=== PATIENT | male | born 1940 | race Caucasian/White ===

== ENCOUNTER 2019-12-02 07:33 | Outpatient (CLI) | payer MEDICARE, SELFPAY ==
[2019-12-02 08:11] LABS: Basophils Absolute Auto 0.1 K/mm3 (0.0-0.1); Basophils Percent Auto 0.9 % (0.2-1.2); Eosinophils Absolute Auto 0.3 K/mm3 (0-0.3); Eosinophils Percent Auto 5.7 % (0-4.4); Hematocrit 45.9 % (42.0-52.0); Hemoglobin 14.6 g/dL (14.0-18.0); Immature Granulocyte Absolute 0.02 K/mm3 (0.00-0.031); Immature Granulocyte Percent A 0.3 % (0-0.5); Lymphocytes Absolute Auto 1.53 K/mm3 (0.9-3.2); Lymphocytes Percent Auto 26.4 % (18.3-44.2); Mean Corpuscular HGB Conc 31.8 g/dl (32-36); Mean Corpuscular Hemoglobin 27.8 pg (26-34); Mean Corpuscular Volume 87.3 fl (80-100); Mean Platelet Volume 10.1 fl (7.4-10.4); Monocytes Absolute Auto 0.6 K/mm3 (0.1-0.6); Monocytes Percent Auto 10.2 % (2.6-8.5); Neutrophils Absolute Auto 3.3 K/mm3 (1.3-6.7); Neutrophils Percent Auto 56.5 % (45.5-73.1); Platelet Count Result 216 k/mm3 (150-375); Red Blood Count 5.26 M/mm3 (4.6-6.20); Red Cell Distribution Width 13.7 % (11.5-14.5); White Blood Count 5.8 K/mm3 (4.5-10.0)
[2019-12-02 08:23] LABS: Blood Urea Nitrogen 19 mg/dL (9-20); Calcium 8.7 mg/dL (8.4-10.2); Carbon Dioxide 29 mmol/L (22-30); Chloride 102 mmol/L (98-107); Cholesterol 169 mg/dL (0-200); Estimated Glomerular Filt Rate > 60; Glucose 112 mg/dL (75-110); HDL Direct 59 mg/dL; Sodium 136 mmol/L (137-145); Triglycerides 80 mg/dL (<150)
[2019-12-02 08:34] LABS: LDL Cholesterol Direct 76 mg/dL
[2019-12-02 08:40] LABS: Hemoglobin A1C 6.3 % (<5.7)
[2019-12-02 08:53] LABS: Prostate Specific Antigen 0.4 ng/mL (< OR = 4.0)
== END 2019-12-02 07:34 | disposition home or self-care (01) ==
PROVIDERS: PCP Internal Medicine; Visit Provider Internal Medicine
DX: I10 Essential (primary) hypertension (principal); I25.10 Atherosclerotic heart disease of native coronary artery without angina pectoris; I48.91 Unspecified atrial fibrillation; I48.92 Unspecified atrial flutter; Z85.46 Personal history of malignant neoplasm of prostate; Z79.899 Other long term (current) drug therapy
CPT/HCPCS: 36415; 80048; 80061; 83036; 84153; 84443; 85025

== ENCOUNTER 2020-07-23 07:51 | Outpatient (CLI) | payer MEDICARE, SELFPAY ==
[2020-07-23 08:30] LABS: Basophils Absolute Auto 0.1 K/mm3 (0.0-0.1); Eosinophils Absolute Auto 0.4 K/mm3 (0-0.3); Eosinophils Percent Auto 5.7 % (0-4.4); Hematocrit 46.3 % (42.0-52.0); Hemoglobin 14.8 g/dL (14.0-18.0); Immature Granulocyte Absolute 0.01 K/mm3 (0.00-0.031); Immature Granulocyte Percent A 0.2 % (0-0.5); Lymphocytes Absolute Auto 1.73 K/mm3 (0.9-3.2); Lymphocytes Percent Auto 27.5 % (18.3-44.2); Mean Corpuscular Hemoglobin 27.9 pg (26-34); Mean Corpuscular Volume 87.2 fl (80-100); Mean Platelet Volume 9.9 fl (7.4-10.4); Monocytes Absolute Auto 0.7 K/mm3 (0.1-0.6); Monocytes Percent Auto 10.6 % (2.6-8.5); Neutrophils Absolute Auto 3.5 K/mm3 (1.3-6.7); Platelet Count Result 226 k/mm3 (150-375); Red Blood Count 5.31 M/mm3 (4.6-6.20); Red Cell Distribution Width 13.4 % (11.5-14.5); White Blood Count 6.3 K/mm3 (4.5-10.0)
[2020-07-23 08:35] LABS: Add Urine Microscopic? YES; Appearance Urine Clear (Clear); Bilirubin Urine Negative (Negative); Blood Urine Negative (Negative); Color Urine Yellow (Yellow); Glucose Urine UA Negative (Negative); Ketones Urine Negative (Negative); Leukocyte Esterase Ur Negative LEU/UL (NEGATIVE); Mucus Urine Rare /lpf; Nitrate Urine Negative (Negative); Protein Urine Negative (Negative); RBC Urine 0-2 /hpf (0-2); Specific Grav Ur 1.015 (1.001-1.035); Urobilinogen Urine Negative mg/dL (<2.0); WBC Urine 0-3 /hpf (0-3)
[2020-07-23 08:42] LABS: Anion Gap 3 mmol/L (8-16); Blood Urea Nitrogen 20 mg/dL (9-20); Calcium 8.7 mg/dL (8.4-10.2); Carbon Dioxide 33 mmol/L (22-30); Chloride 104 mmol/L (98-107); Cholesterol 142 mg/dL (0-200); Estimated Glomerular Filt Rate > 60; Glucose 117 mg/dL (75-110); HDL Direct 59 mg/dL; Potassium 4.2 mmol/L (3.4-5.0); Sodium 140 mmol/L (137-145); Triglycerides 65 mg/dL (<150)
[2020-07-23 08:53] LABS: LDL Cholesterol Direct 59 mg/dL
[2020-07-23 09:47] LABS: Vitamin D 25 Hydroxy 42.7 ng/mL
[2020-07-28 23:34] LABS: Homocysteine 7.9 umol/L (<11.4)
== END 2020-07-23 07:52 | disposition home or self-care (01) ==
PROVIDERS: PCP Internal Medicine; Visit Provider Internal Medicine
DX: E78.2 Mixed hyperlipidemia (principal); R73.03 Prediabetes; Z79.899 Other long term (current) drug therapy; E55.9 Vitamin D deficiency, unspecified
CPT/HCPCS: 36415; 80048; 80061; 81001; 82306; 83036; 83090; 85025

== ENCOUNTER 2021-01-03 06:37 | Outpatient (CLI) | payer MEDICARE, SELFPAY ==
[2021-01-03 07:28] LABS: Anion Gap 6 mmol/L (8-16); Blood Urea Nitrogen 22 mg/dL (9-20); Calcium 9.2 mg/dL (8.4-10.2); Carbon Dioxide 28 mmol/L (22-30); Chloride 101 mmol/L (98-107); Cholesterol 147 mg/dL (0-200); Estimated Glomerular Filt Rate > 60; Glucose 108 mg/dL (65-110); HDL Direct 66 mg/dL; Potassium 4.5 mmol/L (3.4-5.0); Sodium 135 mmol/L (137-145); Triglycerides 68 mg/dL (<150)
[2021-01-03 07:39] LABS: LDL Cholesterol Direct 62 mg/dL
[2021-01-03 10:02] LABS: Free T4 Free Thyroxine 1.02 ng/mL (0.78-2.19)
[2021-01-03 11:44] LABS: Hemoglobin A1C 6.3 % (<5.7)
== END 2021-01-03 06:38 | disposition home or self-care (01) ==
PROVIDERS: PCP Internal Medicine; Visit Provider Internal Medicine
DX: R73.03 Prediabetes (principal); E78.2 Mixed hyperlipidemia; I48.91 Unspecified atrial fibrillation; I48.92 Unspecified atrial flutter; Z79.899 Other long term (current) drug therapy
CPT/HCPCS: 36415; 80048; 80061; 83036; 84439; 84443

== ENCOUNTER 2021-09-23 06:33 | Outpatient (CLI) | payer MEDICARE, SELFPAY ==
[2021-09-23 07:17] LABS: Anion Gap 3 mmol/L (8-16); Blood Urea Nitrogen 19 mg/dL (9-20); Calcium 8.5 mg/dL (8.4-10.2); Carbon Dioxide 30 mmol/L (22-30); Chloride 103 mmol/L (98-107); Cholesterol 134 mg/dL (0-200); Estimated Glomerular Filt Rate > 60; Glucose 106 mg/dL (65-110); HDL Direct 48 mg/dL; Potassium 4.2 mmol/L (3.4-5.0); Sodium 136 mmol/L (137-145); Triglycerides 73 mg/dL (<150)
[2021-09-23 07:28] LABS: LDL Cholesterol Direct 51 mg/dL
[2021-09-23 08:04] LABS: Vitamin D 25 Hydroxy 45.5 ng/mL
== END 2021-09-23 06:34 | disposition home or self-care (01) ==
LOC: ANHLAB 06:36
PROVIDERS: PCP Internal Medicine; Visit Provider Internal Medicine
DX: Z51.81 Encounter for therapeutic drug level monitoring (principal); Z79.899 Other long term (current) drug therapy; E78.2 Mixed hyperlipidemia; R73.03 Prediabetes; E55.9 Vitamin D deficiency, unspecified
CPT/HCPCS: 36415; 80048; 80061; 82306; 83036

== ENCOUNTER 2022-02-14 09:50 | Outpatient (CLI) | payer MEDICARE, SELFPAY ==
[2022-02-14 10:35] LABS: Anion Gap 11 mmol/L (8-16); Blood Urea Nitrogen 22 mg/dL (9-20); Calcium 8.5 mg/dL (8.4-10.2); Carbon Dioxide 29 mmol/L (22-30); Chloride 97 mmol/L (98-107); Cholesterol 169 mg/dL (0-200); Estimated Glomerular Filt Rate > 60; Glucose 113 mg/dL (65-110); HDL Direct 54 mg/dL; Potassium 4.3 mmol/L (3.4-5.0); Sodium 137 mmol/L (137-145); Triglycerides 89 mg/dL (<150)
[2022-02-14 10:45] LABS: LDL Cholesterol Direct 78 mg/dL
[2022-02-14 10:51] LABS: Free T4 Free Thyroxine 1.21 ng/mL (0.78-2.19)
[2022-02-14 11:19] LABS: Hemoglobin A1C 6.1 % (<5.7)
== END 2022-02-14 09:51 | disposition home or self-care (01) ==
LOC: ANHLAB 09:55
PROVIDERS: PCP Internal Medicine; Visit Provider Internal Medicine
DX: R73.03 Prediabetes (principal); Z13.29 Encounter for screening for other suspected endocrine disorder; Z79.899 Other long term (current) drug therapy; E78.5 Hyperlipidemia, unspecified
CPT/HCPCS: 36415; 80048; 80061; 83036; 84439; 84443

== ENCOUNTER 2022-09-04 06:57 | Outpatient (CLI) | payer MEDICARE, SELFPAY ==
[2022-09-04 08:23] LABS: Basophils Absolute Auto 0.1 K/mm3 (0.0-0.1); Basophils Percent Auto 0.9 % (0.2-1.2); Eosinophils Absolute Auto 0.3 K/mm3 (0-0.3); Eosinophils Percent Auto 5.5 % (0-4.4); Hematocrit 45.7 % (42.0-52.0); Hemoglobin 14.6 g/dL (14.0-18.0); Immature Granulocyte Absolute 0.02 K/mm3 (0.00-0.031); Immature Granulocyte Percent A 0.3 % (0-0.5); Lymphocytes Absolute Auto 1.83 K/mm3 (0.9-3.2); Lymphocytes Percent Auto 31.3 % (18.3-44.2); Mean Corpuscular HGB Conc 31.9 g/dl (32-36); Mean Corpuscular Hemoglobin 28.6 pg (26-34); Mean Corpuscular Volume 89.6 fl (80-100); Mean Platelet Volume 10.7 fl (7.4-10.4); Monocytes Absolute Auto 0.7 K/mm3 (0.1-0.6); Monocytes Percent Auto 12.6 % (2.6-8.5); Neutrophils Absolute Auto 2.9 K/mm3 (1.3-6.7); Neutrophils Percent Auto 49.4 % (45.5-73.1); Platelet Count Result 200 k/mm3 (150-375); Red Cell Distribution Width 13.7 % (11.5-14.5); White Blood Count 5.9 K/mm3 (4.5-10.0)
[2022-09-04 08:57] LABS: Alanine Aminotransferase 24 U/L (6-50); Albumin Level 4.2 g/dL (3.5-5.1); Alkaline Phosphatase 69 U/L (38-126); Anion Gap 4 mmol/L (8-16); Aspartate Amino Transferase 27 U/L (17-59); Bilirubin,Total 0.5 mg/dL (0.2-1.3); Blood Urea Nitrogen 19 mg/dL (9-20); Calcium 8.7 mg/dL (8.4-10.2); Carbon Dioxide 31 mmol/L (22-30); Chloride 103 mmol/L (98-107); Cholesterol 148 mg/dL (0-200); Estimated Glomerular Filt Rate > 60; Glucose 109 mg/dL (65-110); HDL Direct 57 mg/dL; Sodium 138 mmol/L (137-145); Triglycerides 70 mg/dL (<150)
[2022-09-04 09:13] LABS: Free T4 Free Thyroxine 1.17 ng/mL (0.78-2.19)
[2022-09-04 09:15] LABS: LDL Cholesterol Direct 63 mg/dL
== END 2022-09-04 06:58 | disposition home or self-care (01) ==
PROVIDERS: PCP Internal Medicine; Visit Provider Internal Medicine
DX: Z79.899 Other long term (current) drug therapy (principal); Z13.29 Encounter for screening for other suspected endocrine disorder; R73.03 Prediabetes; E78.2 Mixed hyperlipidemia
CPT/HCPCS: 36415; 80053; 80061; 83036; 84439; 84443; 85025

== ENCOUNTER 2023-01-15 06:40 | Outpatient (CLI) | payer MEDICARE, SELFPAY ==
[2023-01-15 07:02] LABS: Basophils Absolute Auto 0.1 K/mm3 (0.0-0.1); Eosinophils Absolute Auto 0.4 K/mm3 (0-0.3); Eosinophils Percent Auto 6.3 % (0-4.4); Hemoglobin 14.1 g/dL (14.0-18.0); Lymphocytes Absolute Auto 1.75 K/mm3 (0.9-3.2); Lymphocytes Percent Auto 29.8 % (18.3-44.2); Mean Corpuscular HGB Conc 31.3 g/dl (32-36); Mean Corpuscular Hemoglobin 27.9 pg (26-34); Mean Corpuscular Volume 88.9 fl (80-100); Mean Platelet Volume 10.2 fl (7.4-10.4); Monocytes Absolute Auto 0.7 K/mm3 (0.1-0.6); Monocytes Percent Auto 11.2 % (2.6-8.5); Neutrophils Percent Auto 51.7 % (45.5-73.1); Platelet Count Result 210 k/mm3 (150-375); Red Blood Count 5.06 M/mm3 (4.6-6.20); Red Cell Distribution Width 13.7 % (11.5-14.5); White Blood Count 5.9 K/mm3 (4.5-10.0)
[2023-01-15 07:11] LABS: Alanine Aminotransferase 21 U/L (6-50); Albumin Level 3.9 g/dL (3.5-5.1); Alkaline Phosphatase 58 U/L (38-126); Anion Gap 2 mmol/L (8-16); Aspartate Amino Transferase 26 U/L (17-59); Bilirubin,Total 0.4 mg/dL (0.2-1.3); Blood Urea Nitrogen 21 mg/dL (9-20); Calcium 8.7 mg/dL (8.4-10.2); Carbon Dioxide 30 mmol/L (22-30); Chloride 102 mmol/L (98-107); Cholesterol 149 mg/dL (0-200); Estimated Glomerular Filt Rate > 60; Glucose 115 mg/dL (65-110); HDL Direct 53 mg/dL; Potassium 4.6 mmol/L (3.4-5.0); Sodium 134 mmol/L (137-145); Triglycerides 83 mg/dL (<150)
[2023-01-15 07:21] LABS: LDL Cholesterol Direct 62 mg/dL
[2023-01-15 07:42] LABS: Hemoglobin A1C 6.3 % (<5.7)
[2023-01-15 07:59] LABS: Free T4 Free Thyroxine 1.22 ng/mL (0.78-2.19)
== END 2023-01-15 06:41 | disposition home or self-care (01) ==
LOC: ANHLAB 06:42
PROVIDERS: PCP Internal Medicine; Visit Provider Internal Medicine
DX: E78.2 Mixed hyperlipidemia (principal); R73.03 Prediabetes; Z13.29 Encounter for screening for other suspected endocrine disorder; Z79.899 Other long term (current) drug therapy
CPT/HCPCS: 36415; 80053; 80061; 83036; 84439; 84443; 85025

== ENCOUNTER 2023-05-19 07:53 | Outpatient (CLI) | payer MEDICARE, SELFPAY ==
[2023-05-19 09:06] LABS: Basophils Absolute Auto 0.1 K/mm3 (0.0-0.1); Basophils Percent Auto 1.1 % (0.2-1.2); Eosinophils Absolute Auto 0.2 K/mm3 (0-0.3); Eosinophils Percent Auto 4.1 % (0-4.4); Hematocrit 47.7 % (42.0-52.0); Hemoglobin 14.7 g/dL (14.0-18.0); Lymphocytes Absolute Auto 1.37 K/mm3 (0.9-3.2); Lymphocytes Percent Auto 31.5 % (18.3-44.2); Mean Corpuscular HGB Conc 30.8 g/dl (32-36); Mean Corpuscular Hemoglobin 27.8 pg (26-34); Mean Corpuscular Volume 90.3 fl (80-100); Mean Platelet Volume 10.7 fl (7.4-10.4); Monocytes Absolute Auto 1.1 K/mm3 (0.1-0.6); Monocytes Percent Auto 24.4 % (2.6-8.5); Neutrophils Absolute Auto 1.7 K/mm3 (1.3-6.7); Neutrophils Percent Auto 38.9 % (45.5-73.1); Platelet Count Result 197 k/mm3 (150-375); Red Blood Count 5.28 M/mm3 (4.6-6.20); Red Cell Distribution Width 13.9 % (11.5-14.5); White Blood Count 4.4 K/mm3 (4.5-10.0)
[2023-05-19 09:10] LABS: Anion Gap 7 mmol/L (8-16); Blood Urea Nitrogen 18 mg/dL (9-20); Carbon Dioxide 29 mmol/L (22-30); Chloride 101 mmol/L (98-107); Cholesterol 153 mg/dL (0-200); Estimated Glomerular Filt Rate > 60; Glucose 97 mg/dL (65-110); HDL Direct 54 mg/dL; Potassium 3.9 mmol/L (3.4-5.0); Sodium 137 mmol/L (137-145); Triglycerides 70 mg/dL (<150)
[2023-05-19 09:22] LABS: LDL Cholesterol Direct 69 mg/dL
[2023-05-19 09:31] LABS: Free T4 Free Thyroxine 1.32 ng/mL (0.78-2.19)
[2023-05-19 13:00] LABS: Hemoglobin A1C 6.1 % (<5.7)
== END 2023-05-19 07:54 | disposition home or self-care (01) ==
LOC: ANHLAB 07:57
PROVIDERS: PCP Internal Medicine; Visit Provider Internal Medicine
DX: Z79.899 Other long term (current) drug therapy (principal); E78.2 Mixed hyperlipidemia; Z13.29 Encounter for screening for other suspected endocrine disorder; R73.03 Prediabetes
CPT/HCPCS: 36415; 80048; 80061; 83036; 84439; 84443; 85025

== ENCOUNTER 2023-10-26 07:03 | Outpatient (CLI) | payer MEDICARE, SELFPAY ==
[2023-10-26 07:32] LABS: Basophils Percent Auto 0.7 % (0.2-1.2); Eosinophils Absolute Auto 0.3 K/mm3 (0-0.3); Eosinophils Percent Auto 5.1 % (0-4.4); Hematocrit 44.6 % (42.0-52.0); Hemoglobin 14.1 g/dL (14.0-18.0); Immature Granulocyte Absolute 0.01 K/mm3 (0.00-0.031); Immature Granulocyte Percent A 0.2 % (0-0.5); Lymphocytes Absolute Auto 1.96 K/mm3 (0.9-3.2); Lymphocytes Percent Auto 34.6 % (18.3-44.2); Mean Corpuscular HGB Conc 31.6 g/dl (32-36); Mean Corpuscular Volume 88.5 fl (80-100); Mean Platelet Volume 10.8 fl (7.4-10.4); Monocytes Absolute Auto 0.7 K/mm3 (0.1-0.6); Neutrophils Absolute Auto 2.7 K/mm3 (1.3-6.7); Neutrophils Percent Auto 47.4 % (45.5-73.1); Platelet Count Result 210 k/mm3 (150-375); Red Blood Count 5.04 M/mm3 (4.6-6.20); Red Cell Distribution Width 14.2 % (11.5-14.5); White Blood Count 5.7 K/mm3 (4.5-10.0)
[2023-10-26 07:37] LABS: Alanine Aminotransferase 33 U/L (6-50); Albumin Level 3.8 g/dL (3.5-5.1); Alkaline Phosphatase 69 U/L (38-126); Anion Gap 1 mmol/L (4-12); Aspartate Amino Transferase 28 U/L (17-59); Bilirubin,Total 0.7 mg/dL (0.2-1.3); Blood Urea Nitrogen 19 mg/dL (9-20); Calcium 8.5 mg/dL (8.4-10.2); Carbon Dioxide 29 mmol/L (22-30); Chloride 107 mmol/L (98-107); Cholesterol 119 mg/dL (0-200); Estimated Glomerular Filt Rate > 60; Glucose 105 mg/dL (65-110); HDL Direct 53 mg/dL; Potassium 4.1 mmol/L (3.4-5.0); Sodium 137 mmol/L (137-145); Triglycerides 64 mg/dL (<150)
[2023-10-26 07:47] LABS: Hemoglobin A1C 6.1 % (<5.7)
[2023-10-26 07:48] LABS: LDL Cholesterol Direct 64 mg/dL
[2023-10-26 09:02] LABS: Free T4 Free Thyroxine 1.32 ng/mL (0.78-2.19)
== END 2023-10-26 07:04 | disposition home or self-care (01) ==
LOC: ANHLAB 07:08
PROVIDERS: PCP Internal Medicine; Visit Provider Internal Medicine
DX: R73.03 Prediabetes (principal); E78.2 Mixed hyperlipidemia; Z79.899 Other long term (current) drug therapy; Z13.29 Encounter for screening for other suspected endocrine disorder
CPT/HCPCS: 36415; 80053; 80061; 83036; 84439; 84443; 85025

== ENCOUNTER 2024-03-11 06:37 | Outpatient (CLI) | payer MEDICARE, SELFPAY ==
[2024-03-11 08:16] LABS: Alanine Aminotransferase 25 U/L (6-50); Albumin Level 3.8 g/dL (3.5-5.1); Alkaline Phosphatase 65 U/L (38-126); Anion Gap 6 mmol/L (4-12); Aspartate Amino Transferase 34 U/L (17-59); Bilirubin,Total 0.8 mg/dL (0.2-1.3); Blood Urea Nitrogen 20 mg/dL (9-20); Calcium 8.7 mg/dL (8.4-10.2); Carbon Dioxide 29 mmol/L (22-30); Chloride 101 mmol/L (98-107); Cholesterol 139 mg/dL (0-200); Estimated Glomerular Filt Rate > 60; Glucose 118 mg/dL (65-110); HDL Direct 57 mg/dL; Potassium 4.2 mmol/L (3.4-5.0); Sodium 136 mmol/L (137-145); Triglycerides 68 mg/dL (<150)
[2024-03-11 08:28] LABS: LDL Cholesterol Direct 60 mg/dL
== END 2024-03-11 06:38 | disposition home or self-care (01) ==
PROVIDERS: PCP Internal Medicine; Visit Provider Internal Medicine
DX: E78.2 Mixed hyperlipidemia (principal); R73.03 Prediabetes; Z79.899 Other long term (current) drug therapy
CPT/HCPCS: 36415; 80053; 80061; 83036

== ENCOUNTER 2024-08-25 08:55 | Outpatient (CLI) | payer MEDICARE, SELFPAY ==
--- OUTSIDE RECORDS SUMMARY | 2024-08-25 09:36 | XMS_ITS | Encounter Summary ---
Author Organization [facility] Address [address] [place] [address] Care Team Providers Care Tonnage Compilation Clerk Name Role Phone Douglas Morse MD Primary Care Provider [phone] Encounter Details Date Type Department Care Team (Late st Contact Info) Description 05/21/[address] [facility] [address] [address] [place] [address] [place] [address] [place] [address] Social History Tobacco Use Types Packs/Day Years Used Date Smoking Tobacco: Never Assessed Sex and Gender Information Value Date Recorded Sex Assigned at Not on file Legal Sex Male 4:11 AM BOWLING BALL MOLDER Gender Identity Not on file Sexual Orientation Not on file documented as of this encounter Plan of Treatment Not on file documented as of this encounter Visit Diagnoses Not on filedocumented in this encounter Care Teams Tonnage Compilation Clerk Relationship Specialty [place] [address] [place] [address] PCP - General 12/27/02 documented as of this encounter
--- OUTSIDE RECORDS SUMMARY | 2024-08-25 09:36 | XMS_ITS | Encounter Summary ---
[facility] Organization [facility] Address [address] [place] [address] Care Team Providers Care Musical Instrument Maker Or Repairer Name Role Phone Douglas Morse MD Primary Care Provider [phone] Encounter Details Date Type Department Care Team (Latest Contact Info) Description 05/02/2002 Outpatient Historical [facility] [place] [address] [place] [address] MIXED HYPERLIPIDEMIA (Primary Dx) Social History Tobacco Use Types Packs/Day Years Used Date Smoking Tobacco: Never Assessed Sex and Gender Information Value Date Recorded Sex Assigned at Not on file Legal Sex Male 4:11 AM BIOLOGICAL SCIENTIST Gender Identity Not on file Sexual Orientation Not on file documented as of this encounter Plan of Treatment Not on file documented as of this encounter Visit Diagnoses Diagnosis Mixed hyperlipidemia- Primary documented in this encounter Care Teams Musical Instrument Maker Or Repairer Relationship Specialty [place] [address] [place] [address] PCP - General 12/27/02 documented as of this encounter
--- OUTSIDE RECORDS SUMMARY | 2024-08-25 09:36 | XMS_ITS | Encounter Summary ---
Author Organization [facility] Address [address] [place] [address] Care Team Providers Care Neuropsychiatrist Name Role Phone Douglas Morse MD Primary Care Provider [phone] Encounter Details Date Type Department Care Team (Late st Contact Info) Description 12/30/2003 Outpatient Historical [facility] Medicine [facility] [address] [address] [address] [place] [address] [place] [address] [place] [address] Social History Tobacco Use Types Packs/Day Years Used Date Smoking Tobacco: Never Assessed Sex and Gender Information Value Date Recorded Sex Assigned at Not on file Legal Sex Male 4:11 AM SOLICITING FREIGHT AGENT Gender Identity Not on file Sexual Orientation Not on file documented as of this encounter Last Filed Vital Signs Vital Sign Reading Time Taken Comments Blood Pressure 122/74 12/30/2003 8:00 AM CDT Pulse 76 12/30/2003 8:00 AM CDT Temperature 36.2 C (97.1 F) 12/30/2003 8:00 AM CDT Respiratory Rate 20 12/30/2003 8:00 AM CDT Oxygen Saturation - - Inhaled Oxygen Concentration - - Weight 85.7 kg (189 lb) 12/30/2003 8:00 AM CDT Height - - Body Mass Index - - documented in this encounter Plan of Treatment Not on file documented as of this encounter Visit Diagnoses Not on filedocumented in this encounter Care Teams Neuropsychiatrist Relationship Specialty [place] [address] [place] [address] PCP - General 12/27/02 documented as of this encounter
--- OUTSIDE RECORDS SUMMARY | 2024-08-25 09:36 | XMS_ITS | Encounter Summary ---
Author Organization [employer] Address [address] [place] [address] Care Team Providers Care Emotionally Impaired Teacher Name Role Phone Douglas Morse MD Primary Care Provider [phone] Encounter Details Date Type Department Care Team (Late st Contact Info) Description 10/27/1998 Outpatient Historical [facility] DEPT OF [place] [address] [place] [address] Social History Tobacco Use Types Packs/Day Years Used Date Smoking Tobacco: Never Assessed Sex and Gender Information Value Date Recorded Sex Assigned at Not on file Legal Sex Male 4:11 AM RN LABOR DELIVERY Gender Identity Not on file Sexual Orientation Not on file documented as of this encounter Plan of Treatment Not on file documented as of this encounter Visit Diagnoses Not on filedocumented in this encounter Care Teams Emotionally Impaired Teacher Relationship Specialty [place] [address] [place] [address] PCP - General 12/27/02 documented as of this encounter
--- OUTSIDE RECORDS SUMMARY | 2024-08-25 09:36 | XMS_ITS | Encounter Summary ---
Author Organization [facility] Address [address] [place] [address] Care Team Providers Care Carpenter General Name Role Phone Douglas Morse MD Primary Care Provider [phone] Encounter Details Date Type Department Care Team (Late st Contact Info) Description 11/23/2004 Outpatient Historical [facility] Medicine [facility] [address] [place] [address] [place] [address] [place] [address] Social History Tobacco Use Types Packs/Day Years Used Date Smoking Tobacco: Never Assessed Sex and Gender Information Value Date Recorded Sex Assigned at Not on file Legal Sex Male 4:11 AM WET POUR MIXER Gender Identity Not on file Sexual Orientation Not on file documented as of this encounter Last Filed Vital Signs Vital Sign Reading Time Taken Comments Blood Pressure 126/86 11/23/2004 8:15 AM CDT Pulse 64 11/23/2004 8:15 AM CDT Temperature - - Respiratory Rate - - Oxygen Saturation - - Inhaled Oxygen Concentration - - Weight 84.4 kg (186 lb) 11/23/2004 8:15 AM CDT Height - - Body Mass Index - - documented in this encounter Plan of Treatment Not on file documented as of this encounter Visit Diagnoses Not on filedocumented in this encounter Care Teams Carpenter General Relationship Specialty [place] [address] [place] [address] PCP - General 12/27/02 documented as of this encounter
--- OUTSIDE RECORDS SUMMARY | 2024-08-25 09:36 | XMS_ITS | Referral Summary ---
Author Organization [facility] [address] Address [address] [place] [address] Care Team Providers Care Count Team Clerk Name Role Phone Abelardo Hicks MD Primary Care Provider [phone] Allergies No known active allergies Medications atorvastatin (LIPITOR) 40 mg tablet take 1 tablet by oral route every day 0 0 03/19/2015 Active lisinopril (PRINIVIL,ZESTRI L) 10 mg tablet Take 1 tablet (10 mg total) by mouth 2 (two) times a day Active XARELTO 20 mg tablet Take 1 tablet (20 mg total) by mouth daily 3 12/08/2018 Active aspirin 81 mg enteric coated tablet Take 1 tablet (81 mg total) by mouth daily Active sotaloL (BETAPACE) 120 mg tablet TAKE 1 TABLET(120 MG) BY MOUTH TWICE DAILY 60 tablet 11 03/07/2024 Active Active Problems Problem Noted Date Diagnosed Date Paroxysmal atrial fibrillation 05/15/2019 Sensorineural hearing loss, asymmetrical 019 Coronary artery disease invo lving [place] coronary artery of [place] heart without angina pectoris 06/13/2017 History of coronary artery stent placement 06/13 Social History Tobacco Use Types Packs/Day Years Used Date Smoking Tobacco: Never Smokeless Tobacco: Never Tobacco Cessation:Counseling Given: Not Answered Alcohol Use Standard Drinks/Week Comments Yes 0 (1 standard drink = 0.6 oz pur e alcohol) Sex and Gender Information Value Date Recorded Sex Assigned at Not on file Legal Sex Male 2:19 AM WAREHOUSE SORTER Gender Identity Male 06/25/2024 10:22 PM WAREHOUSE SORTER Sexual Orientation Not on file Last Filed Vital Signs Vital Sign Reading Time Taken Comments Blood Pressure 128/82 05/16/2024 9:19 AM WAREHOUSE SORTER Pulse 62 05/16/2024 9:19 AM WAREHOUSE SORTER Temperature - - Respiratory Rate - - Oxygen Saturation 96% 05/16/2024 9:19 AM WAREHOUSE SORTER Inhaled Oxygen Concentration - - Weight 71.9 kg (158 lb 9.6 oz) 05/16/2024 9:19 A M WAREHOUSE SORTER Height 170.2 cm (5' 7 ) 05/16/2024 9:19 AM WAREHOUSE SORTER Body Mass Index 24.84 05/16/2024 9:19 AM WAREHOUSE SORTER Plan of Treatment Not on file Insurance [facility] MEDICARE [facility] MEDICARE SUPPLEMENT Care Teams Count Team Clerk Relationship Specialty Start Date End Date Abelardo Hicks MD [address] INTERNAL MEDICINE [place] [id number] PCP - General 03/19/15
--- OUTSIDE RECORDS SUMMARY | 2024-08-25 09:36 | XMS_ITS | Encounter Summary ---
Author Organization [employer] Address [address] [place] [address] Care Team Providers Care Steamer Tender Name Role Phone Douglas Morse MD Primary Care Provider [phone] Encounter Details Date Type Department Care Team (Late st Contact Info) Description 11/02/1999 Outpatient Historical [facility] DEPT OF [place] [address] [place] [address] Social History Tobacco Use Types Packs/Day Years Used Date Smoking Tobacco: Never Assessed Sex and Gender Information Value Date Recorded Sex Assigned at Not on file Legal Sex Male 4:11 AM GLASS CUTTER HELPER Gender Identity Not on file Sexual Orientation Not on file documented as of this encounter Plan of Treatment Not on file documented as of this encounter Visit Diagnoses Not on filedocumented in this encounter Care Teams Steamer Tender Relationship Specialty [place] [address] [place] [address] PCP - General 12/27/02 documented as of this encounter
--- OUTSIDE RECORDS SUMMARY | 2024-08-25 09:36 | XMS_ITS | Encounter Summary ---
Author Organization [facility] Address [address] [place] [address] Care Team Providers Care Hvac Installation Technician Name Role Phone Douglas Morse MD Primary Care Provider [phone] Encounter Details Date Type Department Care Team (Latest Contact Info) Description 12/27/2002 Outpatient Historical [facility] [place] [address] [place] [address] BENIGN HYPERTENSION (Primary Dx) Social History Tobacco Use Types Packs/Day Years Used Date Smoking Tobacco: Never Assessed Sex and Gender Information Value Date Recorded Sex Assigned at Not on file Legal Sex Male 4:11 AM CAR STOWER Gender Identity Not on file Sexual Orientation Not on file documented as of this encounter Plan of Treatment Not on file documented as of this encounter Visit Diagnoses Diagnosis Essential hypertension, benign- Primary documented in this encounter Care Teams Hvac Installation Technician Relationship Specialty [place] [address] [place] [address] PCP - General 12/27/02 documented as of this encounter
--- OUTSIDE RECORDS SUMMARY | 2024-08-25 09:36 | XMS_ITS | Encounter Summary ---
Author Organization [facility] Address [address] [place] [address] Care Team Providers Care Rf Design Engineer Name Role Phone Douglas Morse MD Primary Care Provider Encounter Details Date Type Department Care Team (Late st Contact Info) Description 12/10/[address] [facility] Medicine [facility] [address] [address] [place] [address] [place] [address] [place] [address] Social History Tobacco Use Types Packs/Day Years Used Date Smoking Tobacco: Never Assessed Sex and Gender Information Value Date Recorded Sex Assigned at Not on file Legal Sex Male 4:11 AM RADIO DISC JOCKEY Gender Identity Not on file Sexual Orientation Not on file documented as of this encounter Plan of Treatment Not on file documented as of this encounter Visit Diagnoses Not on filedocumented in this encounter Care Teams Rf Design Engineer Relationship Specialty [place] [address] [place] [address] PCP - General 12/27/02 documented as of this encounter
--- OUTSIDE RECORDS SUMMARY | 2024-08-25 09:36 | XMS_ITS | Encounter Summary ---
Author Organization [employer] Address [address] [place] [address] Care Team Providers Care Dye House Vat Worker Name Role Phone Douglas Morse MD Primary Care Provider [phone] Encounter Details Date Type Department Care Team (Late st Contact Info) Description 04/03/2001 Outpatient Historical [facility] DEPT OF [place]ILY [place] [address] [place] [address] Social History Tobacco Use Types Packs/Day Years Used Date Smoking Tobacco: Never Assessed Sex and Gender Information Value Date Recorded Sex Assigned at Not on file Legal Sex Male 4:11 AM POWER TOOL REPAIRER Gender Identity Not on file Sexual Orientation Not on file documented as of this encounter Plan of Treatment Not on file documented as of this encounter Visit Diagnoses Not on filedocumented in this encounter Care Teams Dye House Vat Worker Relationship Specialty [place] [address] [place] [address] PCP - General 12/27/02 documented as of this encounter
--- OUTSIDE RECORDS SUMMARY | 2024-08-25 09:36 | XMS_ITS | Clinical Summary ---
Author Organization [facility] [address] Address [address] [facility] [address] [place] [address] Care Team Providers Care Auto Mechanics Teacher Name Role Phone Abelardo Hicks MD Primary Care Provider [phone] Allergies No known active allergies Medications atorvastatin [...] asymmetrical 019 Coronary artery disease invo lving [place] coronary artery of [place] heart without angina pectoris 06/13/2017 History of coronary artery stent placement 06/13 Surgical History Surgery Date Site/Laterality Comments APPENDECTOMY HEART SURGERY Medical History Medical History Date Comments Hypertension Hypertension HL (hearing loss) Heart attack (HCC) Prostate cancer (HCC) Hypertension Social History Tobacco Use Types Packs/Day Years Used Date Smoking Tobacco: Never Smokeless Tobacco: Never Tobacco Cessation:Counseling Given: Not Answered Alcohol Use Standard Drinks/Week Comments Yes 0 (1 standard drink = 0.6 oz pur e alcohol) Sex and Gender Information Value Date Recorded Sex Assigned at Not on file Legal Sex Male 2:19 AM BILL PEDDLER Gender Identity Male 06/25/2024 10:22 PM BILL PEDDLER Sexual Orientation Not on file Obstetrics History Last Filed Vital Signs Vital Sign Reading Time Taken Comments Blood Pressure 128/82 05/16/2024 9:19 AM BILL PEDDLER Pulse 62 05/16/2024 9:19 AM BILL PEDDLER Temperature - - Respiratory Rate - - Oxygen Saturation 96% 05/16/2024 9:19 AM BILL PEDDLER Inhaled Oxygen Concentration - - Weight 71.9 kg (158 lb 9.6 oz) 05/16/2024 9:19 A M BILL PEDDLER Height 170.2 cm (5' 7 ) 05/16/2024 9:19 AM BILL PEDDLER Body Mass Index 24.84 05/16/2024 9:19 AM BILL PEDDLER Plan of Treatment Health Maintenance Due Date Last Done Comments Depression Screening 1940 Fall Risk Assessment 1940 Hepatitis B Screening 1958 Pneumococcal vaccine 65+ (1 of 1 - PCV) 1990 Zoster Vaccine (1 of 2) 1990 DTaP/Tdap/Td Vaccine (1 - Tdap) 11/10/1997 8 Well Visit 65+ 2005 Influenza Vaccine (#1) 2024 06/12/2017, 2011 Insurance MEDICARE MEDICARE [facility] MEDICARE BLUE CROSS MEDICARE SUPPLEMENT Care Teams Auto Mechanics Teacher Relationship Specialty Start Date End Date Abelardo Hicks MD [address] [place] [address] PCP - General 03/19/15
--- OUTSIDE RECORDS SUMMARY | 2024-08-25 09:36 | XMS_ITS | Clinical Summary ---
Author Organization [facility] Address [address]: Epic Prelude ADT [place] [address] Care Team Providers Care Superintendent Oil Well Services Name Role Phone Douglas Morse MD Primary Care Provider [phone] Active Problems Problem Noted Date Diagnosed Date Essential hypertension, benign 12/30/2003 Coronary atherosclerosis of unspecified type of vessel, citizen [place] or graft 12/30/2003 Acute myocardial infarction, unspecified site, episode of care unspecified 12/30/2003 Mixed hyperlipidemia 12/29/2003 Routine general medical exam ination at a health care facility 12/29/2003 Immunizations Immunization Administration Dates Next Due (TDVAX)(7 YRS UP) TETANUS AN D DIPHTHERIA TOXOIDS, ADSORBED (2 LF OF TETANUS TOXOID AND 2 LF OF DIPHTHERIA TOXOID), 0.5ML (PF), IM 11/09/1997 Social History Tobacco Use Types Packs/Day Years Used Date Smoking Tobacco: Never Assessed Sex and Gender Information Value Date Recorded Sex Assigned at Not on file Legal Sex Male 4:11 AM CLIP LOADING MACHINE FEEDER Gender Identity Not on file Sexual Orientation Not on file Last Filed Vital Signs Vital Sign Reading Time Taken Comments Blood Pressure 126/86 11/23/2004 8:15 AM CDT Pulse 64 11/23/2004 8:15 AM CDT Temperature 36.2 C (97.1 F) 12/30/2003 8:00 AM CDT Respiratory Rate 20 12/30/2003 8:00 AM CDT Oxygen Saturation - - Inhaled Oxygen Concentration - - Weight 84.4 kg (186 lb) 11/23/2004 8:15 AM CDT Height - - Body Mass Index - - Plan of Treatment Health Maintenance Due Date Last Done Comments PNEUMOCOCCAL VACCINE 50+ YEARS (1 of 1 - PCV) 11/30/18 91 ZOSTER VACCINE (1 of 2) 1990 DTAP/TDAP/TD VACCINES (1 - Tdap) 11/10/1997 11/09/18 98 RSV VACCINE (60+ or ) (1 - 1-dose 75+ series) 12/01/2015 INFLUENZA VACCINE (#1) 2024 Care Teams Superintendent Oil Well Services Relationship Specialty [place] [address] [place] [id number] PCP - General 12/27/02
[2024-08-25 09:57] LABS: Alanine Aminotransferase 22 U/L (6-50); Albumin Level 4.1 g/dL (3.5-5.1); Alkaline Phosphatase 72 U/L (38-126); Anion Gap 4 mmol/L (4-12); Aspartate Amino Transferase 25 U/L (17-59); Bilirubin,Total 0.5 mg/dL (0.2-1.3); Blood Urea Nitrogen 23 mg/dL (9-20); Carbon Dioxide 32 mmol/L (22-30); Chloride 101 mmol/L (98-107); Cholesterol 140 mg/dL (0-200); Estimated Glomerular Filt Rate > 60; Glucose 111 mg/dL (65-110); HDL Direct 66 mg/dL; Potassium 4.6 mmol/L (3.4-5.0); Sodium 137 mmol/L (137-145); Triglycerides 57 mg/dL (<150)
[2024-08-25 10:09] LABS: LDL Cholesterol Direct 54 mg/dL
[2024-08-25 11:01] LABS: Free T4 Free Thyroxine 1.18 ng/dL (0.78-2.19)
[2024-08-25 11:20] LABS: Folic Acid > 20.0 ng/mL (2.76->20)
[2024-08-25 11:25] LABS: Hemoglobin A1C 5.9 % (<5.7)
== END 2024-08-25 08:56 | disposition home or self-care (01) ==
PROVIDERS: PCP Internal Medicine; Visit Provider Internal Medicine
DX: E78.2 Mixed hyperlipidemia (principal); Z79.899 Other long term (current) drug therapy; R41.89 Other symptoms and signs involving cognitive functions and awareness; Z13.29 Encounter for screening for other suspected endocrine disorder; R73.03 Prediabetes; E53.9 Vitamin B deficiency, unspecified
CPT/HCPCS: 36415; 80053; 80061; 82607; 82746; 83036; 84439; 84443

== ENCOUNTER 2024-12-19 07:42 | Outpatient (CLI) | payer MEDICARE, SELFPAY ==
--- OUTSIDE RECORDS SUMMARY | 2024-12-19 07:46 | XMS_ITS | Encounter Summary ---
Author Organization [employer] Address [address] [place] [address] Care Team Providers Care Assistant Manager Pt Name Role Phone Douglas Morse MD Primary Care Provider [phone] Encounter Details Date Type Department Care Team (Late st Contact Info) Description 04/03/2001 Outpatient Historical HIS [facility] DEPT OF [place] [address] [place] [address] Social History Tobacco Use Types Packs/Day Years Used Date Smoking Tobacco: Never Assessed Sex and Gender Information Value Date Recorded Sex Assigned at Not on file Legal Sex Male 4:11 AM SMALL ANIMAL VETERINARIAN Gender Identity Not on file Sexual Orientation Not on file documented as of this encounter Plan of Treatment Not on file documented as of this encounter Visit Diagnoses Not on filedocumented in this encounter Care Teams Assistant Manager Pt Relationship Specialty [place] [address] [place] [address] PCP - General 12/27/02 documented as of this encounter
--- OUTSIDE RECORDS SUMMARY | 2024-12-19 07:46 | XMS_ITS | Referral Summary ---
Author Organization [facility] [address] Address [address] [place] [address] Care Team Providers Care Eviction Specialist Name Role Phone Abelardo Hicks MD Primary Care Provider [phone] Encounters Date Type Department Care Team Description 12/18/2024 10:00 AM CDT Procedure visit [facility] [address] [place] [address] Medicine [address]th [place] [address] [place] [address] Franchesca An Au.D. Sensorineural hearing loss, asymmetrical (Primary Dx) 10/09/2024 11:00 AM CDT Procedure visit [facility] [address] [place] [address] 11th [place] [address] [place] [address] Franchesca An Au.D. Sensorineural hearing loss, asymmetrical (Primary Dx) from Last 3 Months Allergies No known active allergies Medications atorvastatin [...] asymmetrical 019 Coronary artery disease invo lving platinum coronary artery of platinum heart without angina pectoris 06/13/2017 History of [...] on file Legal Sex Male 2:19 AM NURSE RN BSN Gender Identity Male 06/25/2024 10:22 PM NURSE RN BSN Sexual Orientation Not on file Last Filed Vital Signs Vital Sign Reading Time Taken Comments Blood Pressure 128/82 05/16/2024 9:19 AM NURSE RN BSN Pulse 62 05/16/2024 9:19 AM NURSE RN BSN Temperature - - Respiratory Rate - - Oxygen Saturation 96% 05/16/2024 9:19 AM NURSE RN BSN Inhaled Oxygen Concentration - - Weight 71.9 kg (158 lb 9.6 oz) 05/16/2024 9:19 A M NURSE RN BSN Height 170.2 cm (5' 7) 05/16/2024 9:19 AM NURSE RN BSN Body Mass Index 24.84 05/16/2024 9:19 AM NURSE RN BSN Plan of Treatment Not on file Procedures Procedure Name Priority Date/Time Associated Diagnosis Comments AUDBASE RESULTS 10/09/2024 10:19 AM CDT from Last 3 Months Results * AudBase Results (10/09/2024 10:19 AM CDT) us Provider Scanning AUDIOLOGY SERVICES ORDERABLES Final Result from Last 3 Months Insurance MEDICARE [facility]ICARE [facility] BL[facility] CROSS MEDICARE SUPPLEMENT MEDICARE [facility] MEDICARE SUPPLEMENT Care Teams Eviction Specialist Relationship Specialty Start Date End Date Abelardo Hicks MD [address] INTERNAL MEDICINE [place], [place] [id number] PCP - General 03/19/15
--- OUTSIDE RECORDS SUMMARY | 2024-12-19 07:46 | XMS_ITS | Encounter Summary ---
Author Organization [facility] Address [address] [place] [address] Care Team Providers Care Patient Clerical Assistant Name Role Phone Douglas Morse MD Primary Care Provider [phone] Encounter Details Date Type Department Care Team (Late st Contact Info) Description 05/21/2002 Outpatient Historical [facility] Medicine [facility] [address] [address] [place] [address] [place] [address] [place] [address] Social History Tobacco Use Types Packs/Day Years Used Date Smoking Tobacco: Never Assessed Sex and Gender Information Value Date Recorded Sex Assigned at Not on file Legal Sex Male 4:11 AM PURSE SEINER Gender Identity Not on file Sexual Orientation Not on file documented as of this encounter Plan of Treatment Not on file documented as of this encounter Visit Diagnoses Not on filedocumented in this encounter Care Teams Patient Clerical Assistant Relationship Specialty [place] [address] [place] [address] PCP - General 12/27/02 documented as of this encounter
--- OUTSIDE RECORDS SUMMARY | 2024-12-19 07:46 | XMS_ITS | Encounter Summary ---
Author Organization [facility] Address [address] [place] [address] Care Team Providers Care Pediatric Acute Care Unit Nurse Name Role Phone Douglas Morse MD Primary Care Provider [phone] Encounter Details Date Type Department Care Team (Late st Contact Info) Description 12/10/2002 Outpatient Historical [facility] Medicine [facility] [address] [address] [place] [address] [place] [address] [place] [address] Social History Tobacco Use Types Packs/Day Years Used Date Smoking Tobacco: Never Assessed Sex and Gender Information Value Date Recorded Sex Assigned at Not on file Legal Sex Male 4:11 AM HR REPRESENTATIVE Gender Identity Not on file Sexual Orientation Not on file documented as of this encounter Plan of Treatment Not on file documented as of this encounter Visit Diagnoses Not on filedocumented in this encounter Care Teams Pediatric Acute Care Unit Nurse Relationship Specialty Start [place] [address] [place] [address] PCP - General 12/27/02 documented as of this encounter
--- OUTSIDE RECORDS SUMMARY | 2024-12-19 07:46 | XMS_ITS | Encounter Summary ---
Author Organization [facility] Address [address] [place] [address] Care Team Providers Care Grades 9 Through 12 Teacher Name Role Phone Douglas Morse MD Primary Care Provider [phone] Encounter Details Date Type Department Care Team (Latest Contact Info) Description 12/27/2002 Outpatient Historical HIS [facility] [place] [address] [place] [address] BENIGN HYPERTENSION (Primary Dx) Social History Tobacco Use Types Packs/Day Years Used Date Smoking Tobacco: Never Assessed Sex and Gender Information Value Date Recorded Sex Assigned at Not on file Legal Sex Male 4:11 AM SENIOR RECRUITER Gender Identity Not on file Sexual Orientation Not on file documented as of this encounter Plan of Treatment Not on file documented as of this encounter Visit Diagnoses Diagnosis Essential hypertension, benign- Primary documented in this encounter Care Teams Grades 9 Through 12 Teacher Relationship Specialty [place] [address] [place] [address] PCP - General 12/27/02 documented as of this encounter
--- OUTSIDE RECORDS SUMMARY | 2024-12-19 07:46 | XMS_ITS | Encounter Summary ---
Author Organization [facility] Address [address] [place] [address] Care Team Providers Care Lathe Set Up Operator Name Role Phone Douglas Morse MD Primary Care Provider [phone] Encounter Details Date Type Department Care Team (Late st Contact Info) Description 12/30/2003 Outpatient Historical [facility] Medicine [facility] [address] [facility] [address] [place] [address] [place] [address] [place] [address] Social History Tobacco Use Types Packs/Day Years Used Date Smoking Tobacco: Never Assessed Sex and Gender Information Value Date Recorded Sex Assigned at Not on file Legal Sex Male 4:11 AM PROPERTIES SUPERVISOR Gender Identity Not on file Sexual Orientation [...] on filedocumented in this encounter Care Teams Lathe Set Up Operator Relationship Specialty [place] [address] [place] [address] PCP - General 12/27/02 documented as of this encounter
--- OUTSIDE RECORDS SUMMARY | 2024-12-19 07:46 | XMS_ITS | Clinical Summary ---
Author Organization [facility] Address [address] 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
--- OUTSIDE RECORDS SUMMARY | 2024-12-19 07:46 | XMS_ITS | Encounter Summary ---
Author Organization [facility] Address 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
--- OUTSIDE RECORDS SUMMARY | 2024-12-19 07:46 | XMS_ITS | Encounter Summary ---
Author Organization [facility] Address 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
--- OUTSIDE RECORDS SUMMARY | 2024-12-19 07:46 | XMS_ITS | Encounter Summary ---
Author Organization [facility] Address [address] [place] [address] Care Team Providers Care Jigger Operator Name Role Phone Douglas Morse MD Primary Care Provider [phone] Encounter Details Date Type Department Care Team (Late st Contact Info) Description 11/23/2004 Outpatient Historical [facility] Medicine [facility] [address] [place] [address] [place] [address] [place] [address] Social History Tobacco Use Types Packs/Day Years Used Date Smoking Tobacco: Never Assessed Sex and Gender Information Value Date Recorded Sex Assigned at Not on file Legal Sex Male 4:11 AM EQUESTRIAN TRAINER Gender Identity Not on file Sexual Orientation [...] on filedocumented in this encounter Care Teams Jigger Operator Relationship Specialty [place] [address] [place] [address] PCP - General 12/27/02 documented as of this encounter
--- OUTSIDE RECORDS SUMMARY | 2024-12-19 07:46 | XMS_ITS | Clinical Summary ---
Author Organization [facility] [address] [facility] [address] Address [address] [place] [address] Care Team Providers Care Meteorology Professor Name Role Phone Abelardo Hicks MD Primary Care Provider [phone] Allergies No known active allergies Medications atorvastatin [...] asymmetrical 019 Coronary artery disease invo lving [place] coronary artery of [place] heart without angina pectoris 06/13/2017 History of coronary artery stent placement 06/13 Encounters Date Type Department Care Team Description 12/18/2024 10:00 AM CDT Procedure visit [facility] Otolaryngology [address] [facility] [address]th [place] [address] [place] [address] Franchesca An Au.D. Sensorineural hearing loss, asymmetrical (Primary Dx) 10/09/2024 11:00 AM CDT Procedure visit [facility] Otolaryngology [address] [facility] [address]th [place] [address] [place] [address] Franchesca An Au.D. Sensorineural hearing loss, asymmetrical (Primary Dx) from Last 3 Months Surgical History Surgery Date Site/Laterality Comments APPENDECTOMY [...] on file Legal Sex Male 2:19 AM ORIGINATION SPECIALIST Gender Identity Male 06/25/2024 10:22 PM ORIGINATION SPECIALIST Sexual Orientation Not on file Obstetrics History Last Filed Vital Signs Vital Sign Reading Time Taken Comments Blood Pressure 128/82 05/16/2024 9:19 AM ORIGINATION SPECIALIST Pulse 62 05/16/2024 9:19 AM ORIGINATION SPECIALIST Temperature - - Respiratory Rate - - Oxygen Saturation 96% 05/16/2024 9:19 AM ORIGINATION SPECIALIST Inhaled Oxygen Concentration - - Weight 71.9 kg (158 lb 9.6 oz) 05/16/2024 9:19 A M ORIGINATION SPECIALIST Height 170.2 cm (5' 7) 05/16/2024 9:19 AM ORIGINATION SPECIALIST Body Mass Index 24.84 05/16/2024 9:19 AM ORIGINATION SPECIALIST Plan of Treatment Health Maintenance Due Date Last Done Comments Depression Screening 1940 Fall Risk Assessment 1940 Hepatitis B Screening 1958 Pneumococcal vaccine 65+ (1 of 1 - PCV) 1990 Zoster Vaccine (1 of 2) 1990 DTaP/Tdap/Td Vaccine (1 - Tdap) 11/10/1997 8 Well Visit 65+ 2005 Influenza Vaccine (#1) 2025 06/12/2017, 2011 Procedures Procedure Name Priority Date/Time Associated Diagnosis Comments AUDBASE RESULTS 10/09/2024 10:19 AM CDT from Last 3 Months Results * AudBase Results (10/09/2024 10:19 AM CDT) Provider Scanning AUDIOLOGY SERVICES ORDERABLES Final Result from Last 3 Months Insurance [facility] BLUE CROSS MEDICARE SUPPLEMENT MEDICARE [facility] Address: [address] [address] [place] [address] [facility] MEDICARE SUPPLEMENT Care Teams Meteorology Professor Relationship Specialty Start Date End Date Abelardo Hicks MD [address] [facility] [address] [place] [address] PCP - General 03/19/15
--- OUTSIDE RECORDS SUMMARY | 2024-12-19 07:46 | XMS_ITS | Encounter Summary ---
Author Organization [facility] Address [address] [place] [address] [place] [address] Phone Care Team Providers Care Rail Transportation Tabeler Name Role Phone Abelardo Hicks MD Primary Care Provider [phone] Encounter Details Date Type Department Care Team (Latest Contact Info) Description 12/18/2024 10:00 AM CDT Procedure visit [facility] Otolaryngology [address] [facility] 11th [place] [address] [place] [address] Franchesca An Au.D. [address] [place] [address] Sensorineural hearing loss, asymmetrical (Primary Dx) Social History Tobacco Use Types Packs/Day Years Used Date Smoking Tobacco: Never Smokeless Tobacco: Never Alcohol Use Standard Drinks/Week Comments Yes 0 (1 standard drink = 0.6 oz pur e alcohol) Sex and Gender Information Value Date Recorded Sex Assigned at Not on file Legal Sex Male 2:19 AM AIR ANALYST Gender Identity Male 06/25/2024 10:22 PM AIR ANALYST Sexual Orientation Not on file documented as of this encounter Procedure Notes * Franchesca An Au.D. - 12/18/2024 10:00 AM CDT Procedures Hearing Assistive Technology Pick-Up Name: Calvin Yung : 1940 DOS: 12/18/2024 Provider: Paulina Jernigan PATIENT REPORTS: Patient presents to pickling machine operator his new Adrián On 3. He was accompanied by his . TESTS PERFORMED: See: n/a His L Phonak Shelbyeo [id number] hearing aid was connected and fermenting cellars receiver downloaded to the Adrián On 3. Ensured connection was established. Pt was counseled on use of the Adrián On 3 device included table, pointer, and presenter modes. Theywere also shown the charging base which can connect to a TV. They were given several user guides and all included accessories. Patient paid $1610 for his new Adrián On 3. He will follow-up as needed. PLAN / RECOMMENDATIONS: Pt to return as needed Paulina Ralph, CCC-A documented in this encounter Plan of Treatment Not on file documented as of this encounter Visit Diagnoses Diagnosis Sensorineural hearing loss, asymmetrical- Primary documented in this encounter Care Teams Rail Transportation Tabeler Relationship Specialty Start Date End Date Abelardo Hicks MD [address] [facility] [address] [place] [address] PCP - General 03/19/15 documented as of this encounter
--- OUTSIDE RECORDS SUMMARY | 2024-12-19 07:46 | XMS_ITS | Encounter Summary ---
Author Organization [facility] Address [address] [place] [address] Care Team Providers Care Patient Care Nursing Assistant Name Role Phone Douglas Morse MD Primary Care Provider [phone] Encounter Details Date Type Department Care Team (Late st Contact Info) Description 11/02/1999 Outpatient Historical HIS [facility] DEPT OF [place] [address] [place] [address] Social History Tobacco Use Types Packs/Day Years Used Date Smoking Tobacco: Never Assessed Sex and Gender Information Value Date Recorded Sex Assigned at Not on file Legal Sex Male 4:11 AM SAAS ARCHITECT Gender Identity Not on file Sexual Orientation Not on file documented as of this encounter Plan of Treatment Not on file documented as of this encounter Visit Diagnoses Not on filedocumented in this encounter Care Teams Patient Care Nursing Assistant Relationship Specialty [place] [address] [place] [address] PCP - General 12/27/02 documented as of this encounter
[2024-12-19 08:24] LABS: Hematocrit 45.4 % (42.0-52.0); Hemoglobin 14.3 g/dL (14.0-18.0); Immature Granulocyte Percent A 0.2 % (0-0.5); Lymphocytes Absolute Auto 1.36 K/mm3 (0.9-3.2); Mean Corpuscular HGB Conc 31.5 g/dl (32-36); Mean Corpuscular Hemoglobin 28.1 pg (26-34); Mean Corpuscular Volume 89.2 fl (80-100); Nucleated Red Blood Cells Absolute Auto 0.000 K/mm3 (0.0-0.012); Nucleated Red Blood Cells Perc 0.0 % (0.0-0.2); Platelet Count Result 186 k/mm3 (150-375); Red Blood Count 5.09 M/mm3 (4.6-6.20); White Blood Count 5.3 K/mm3 (4.5-10.0)
[2024-12-19 08:30] LABS: Add Urine Microscopic? NO; Appearance Urine Clear (Clear); Glucose Urine UA Negative (Negative); Leukocyte Esterase Ur Negative LEU/UL (Negative); Nitrate Urine Negative (Negative); Specific Grav Ur 1.016 (1.001-1.035)
[2024-12-19 09:22] LABS: Free T4 Free Thyroxine 1.01 ng/dL (0.78-2.19)
[2024-12-19 09:44] LABS: Alanine Aminotransferase 22 U/L (6-50); Albumin Level 4.3 g/dL (3.5-5.1); Alkaline Phosphatase 66 U/L (38-126); Anion Gap 7 mmol/L (4-12); Aspartate Amino Transferase 30 U/L (17-59); Bilirubin,Total 1.1 mg/dL (0.2-1.3); Blood Urea Nitrogen 16 mg/dL (9-20); Calcium 9.2 mg/dL (8.4-10.2); Carbon Dioxide 29 mmol/L (22-30); Chloride 103 mmol/L (98-107); Cholesterol 169 mg/dL (0-200); Estimated Glomerular Filt Rate > 60; Glucose 98 mg/dL (65-110); HDL Direct 69 mg/dL; Potassium 4.1 mmol/L (3.4-5.0); Sodium 139 mmol/L (137-145); Total Protein 7.3 g/dL (6.3-8.2); Triglycerides 71 mg/dL (<150)
[2024-12-19 10:01] LABS: Hemoglobin A1C 6.0 % (<5.7)
[2024-12-19 10:14] LABS: Thyroid Stimulating Hormone 1.240 uIU/mL (0.465-4.680)
== END 2024-12-19 07:43 | disposition home or self-care (01) ==
LOC: ANHLAB 07:44
PROVIDERS: PCP Internal Medicine; Visit Provider Internal Medicine
DX: Z79.899 Other long term (current) drug therapy (principal); Z13.29 Encounter for screening for other suspected endocrine disorder; R73.03 Prediabetes; E78.2 Mixed hyperlipidemia
CPT/HCPCS: 36415; 80053; 80061; 81003; 83036; 84439; 84443; 85025

== ENCOUNTER 2025-04-21 11:22 | Outpatient (CLI) | payer MEDICARE, SELFPAY ==
--- OUTSIDE RECORDS SUMMARY | 2025-04-21 12:02 | XMS_ITS | Encounter Summary ---
Author Organization [facility] Address [address] [place] [address] Care Team Providers Care Clerk Of Works Name Role Phone Douglas Morse MD Primary Care Provider [phone] Encounter Details Date Type Department Care Team (Late st Contact Info) Description 04/03/2001 Outpatient Historical HIS [facility] DEPT OF [place] [address] [place] [address] Social History Tobacco Use Types Packs/Day Years Used Date Smoking Tobacco: Never Assessed Sex and Gender Information Value Date Recorded Sex Assigned at Not on file Legal Sex Male 4:11 AM LANGUAGE INTERPRETER Gender Identity Not on file Sexual Orientation Not on file documented as of this encounter Plan of Treatment Not on file documented as of this encounter Visit Diagnoses Not on filedocumented in this encounter Care Teams Clerk Of Works Relationship Specialty [place] [address] [place] [address] PCP - General 12/27/02 documented as of this encounter
--- OUTSIDE RECORDS SUMMARY | 2025-04-21 12:02 | XMS_ITS | Encounter Summary ---
Author Organization [facility] Address [address] [place] [address] Care Team Providers Care Cloth Tester Name Role Phone Douglas Morse MD Primary Care Provider [phone] Encounter Details Date Type Department Care Team (Latest Contact Info) Description 05/02/2002 Outpatient Historical HIS [facility] [place] [place] [address] [place] [address] MIXED HYPERLIPIDEMIA (Primary Dx) Social History Tobacco Use Types Packs/Day Years Used Date Smoking Tobacco: Never Assessed Sex and Gender Information Value Date Recorded Sex Assigned at Not on file Legal Sex Male 4:11 AM CHAIRPERSON ANESTHESIOLOGY Gender Identity Not on file Sexual Orientation Not on file documented as of this encounter Plan of Treatment Not on file documented as of this encounter Visit Diagnoses Diagnosis Mixed hyperlipidemia- Primary documented in this encounter Care Teams Cloth Tester Relationship Specialty [place] [address] [place] [address] PCP - General 12/27/02 documented as of this encounter
--- OUTSIDE RECORDS SUMMARY | 2025-04-21 12:02 | XMS_ITS | Encounter Summary ---
Author Organization [facility] Address [address] [place] [address] Care Team Providers Care Laundry Agent Name Role Phone Douglas Morse MD Primary Care Provider [phone] Encounter Details Date Type Department Care Team (Late st Contact Info) Description 11/23/2004 Outpatient Historical [facility] Medicine [facility] [address] [facility] [address] [place] [address] [place] [address] [place] [address] Social History Tobacco Use Types Packs/Day Years Used Date Smoking Tobacco: Never Assessed Sex and Gender Information Value Date Recorded Sex Assigned at Not on file Legal Sex Male 4:11 AM ROCK PICKER Gender Identity Not on file Sexual Orientation [...] on filedocumented in this encounter Care Teams Laundry Agent Relationship Specialty [place] [address] [place] [address] PCP - General 12/27/02 documented as of this encounter
--- OUTSIDE RECORDS SUMMARY | 2025-04-21 12:02 | XMS_ITS | Encounter Summary ---
Author Organization [facility] Address [address] [place] [address] Care Team Providers Care Utilities Ground Worker Name Role Phone Douglas Morse MD Primary Care Provider [phone] Encounter Details Date Type Department Care Team (Late st Contact Info) Description 12/30/2003 Outpatient Historical [facility] Medicine [facility] [address] [facility] [address] [place] [address] [place] [address] [place] [address] Social History Tobacco Use Types Packs/Day Years Used Date Smoking Tobacco: Never Assessed Sex and Gender Information Value Date Recorded Sex Assigned at Not on file Legal Sex Male 4:11 AM PROJECT ESTIMATOR Gender Identity Not on file Sexual Orientation [...] on filedocumented in this encounter Care Teams Utilities Ground Worker Relationship Specialty [place] [address] [place] [address] PCP - General 12/27/02 documented as of this encounter
--- OUTSIDE RECORDS SUMMARY | 2025-04-21 12:02 | XMS_ITS | Encounter Summary ---
Author Organization [facility] Address [address] [place] [address] Care Team Providers Care Supervisor Tank Storage Name Role Phone Douglas Morse MD Primary Care Provider [phone] Encounter Details Date Type Department Care Team (Late st Contact Info) Description 10/27/1998 Outpatient Historical HIS [facility] DEPT [place] [address] [place] [address] Social History Tobacco Use Types Packs/Day Years Used Date Smoking Tobacco: Never Assessed Sex and Gender Information Value Date Recorded Sex Assigned at Not on file Legal Sex Male 4:11 AM TRANSITION NURSE Gender Identity Not on file Sexual Orientation Not on file documented as of this encounter Plan of Treatment Not on file documented as of this encounter Visit Diagnoses Not on filedocumented in this encounter Care Teams Supervisor Tank Storage Relationship Specialty [place] [address] [place] [address] PCP - General 12/27/02 documented as of this encounter
--- OUTSIDE RECORDS SUMMARY | 2025-04-21 12:02 | XMS_ITS | Clinical Summary ---
Author Organization [facility] [address] [facility] [address] Address [address] [place] [address] Care Team Providers Care Pipe And Test Supervisor Name Role Phone Abelardo Hicks MD Primary Care Provider [phone] Allergies No known active allergies Medications atorvastatin [...] mouth daily Active sotaloL (BETAPACE) 120 mg tabletIndication s:Encounter for monitoring sotalol therapy Take 1 tablet (120 mg total) by mouth 2 (two) times a day 180 tablet 3 01/22/2025 Active Active Problems Problem Noted Date Diagnosed Date Paroxysmal atrial fibrillation 05/15/2019 Sensorineural hearing loss, asymmetrical 019 Coronary artery disease invo lving [place] coronary artery of [place] heart without angina pectoris 06/13/2017 History of coronary artery stent placement 06/13 Encounters Date Type Department Care Team Description 01/28/2025 Orders Only [facility] Cardiology [address] [place] [address] ProviderYovani MD 01/22/2025 3:00 PM CDT Office Visit [facility] Card[facility] [address] [place] [address] Hailee Kidd NP Paroxysmal atrial fibrillation (HCC); Chronic anticoagulation; Encounter for monitoring sotalol therapy; Coronary artery disease involving [place] coronary artery of [place] heart without angina pectoris; History of coronary artery stent placement from Last 3 Months Surgical History Surgery Date Site/Laterality Comments APPENDECTOMY HEART SURGERY CATARACT EXTRACTION 2023 ANGIOPLASTY Medical History Medical History Date Comments Hypertension [...] on file Legal Sex Male 2:19 AM TENSION MACHINE OPERATOR Gender Identity Male 06/25/2024 10:22 PM TENSION MACHINE OPERATOR Sexual Orientation Not on file Last Filed Vital Signs Vital Sign Reading Time Taken Comments Blood Pressure 118/60 01/22/2025 2:58 PM CDT Pulse 59 01/22/2025 2:58 PM CDT Temperature - - Respiratory Rate - - Oxygen Saturation 97% 01/22/2025 2:58 PM CDT Inhaled Oxygen Concentration - - Weight 69.9 kg (154 lb) 01/22/2025 2:58 PM CDT Height 170.2 cm (5' 7) 01/22/2025 2:58 PM CDT Body Mass Index 24.12 01/22/2025 2:58 PM CDT Plan of Treatment Health Maintenance Due Date Last Done Comments Depression Screening 1940 Fall Risk Assessment 1940 Hepatitis B Screening 1958 Pneumococcal vaccine 65+ (1 of 1 - PCV) 1990 Zoster Vaccine (1 of 2) 1990 DTaP/Tdap/Td Vaccine (1 - Tdap) 11/10/1997 8 Well Visit 65+ 2005 Influenza Vaccine (#1) 2025 06/12/2017, 2011 Procedures Procedure Name Priority Date/Time Associated Diagnosis Comments ECG 12-LEAD Routine 01/22/2025 3:24 PM CDT Encounter for monitoring sotalol therapy from Last 3 Months Results * ECG 12 lead (01/22/2025 3:24 PM CDT) 01/22/2025 3:24 PM CDT Hailee Kidd WELDING PRODUCTION SUPERVISOR ECG ORDERABLES Edited Re sult - Final from Last 3 Months Insurance MEDICARE [facility] MEDICARE SUPPLEMENT MEDICARE [facility] MEDICARE SUPPLEMENT Care Teams Pipe And Test Supervisor Relationship Specialty Start Date End Date Abelardo Hicks MD PCP - General 03/19/15
--- OUTSIDE RECORDS SUMMARY | 2025-04-21 12:02 | XMS_ITS | Encounter Summary ---
Author Organization [facility] Address [address] [place] [address] Care Team Providers Care Precision Grinder Name Role Phone Douglas Morse MD Primary Care Provider [phone] Encounter Details Date Type Department Care Team (Late st Contact Info) Description 12/10/2002 Outpatient Historical [facility] Medicine [facility] [address] [facility] [address] [place] [address] [place] [address] [place] [address] Social History Tobacco Use Types Packs/Day Years Used Date Smoking Tobacco: Never Assessed Sex and Gender Information Value Date Recorded Sex Assigned at Not on file Legal Sex Male 4:11 AM ELECTROPHYSIOLOGY TECHNOLOGIST Gender Identity Not on file Sexual Orientation Not on file documented as of this encounter Plan of Treatment Not on file documented as of this encounter Visit Diagnoses Not on filedocumented in this encounter Care Teams Precision Grinder Relationship Specialty [place] [address] [place] [address] PCP - General 12/27/02 documented as of this encounter
--- OUTSIDE RECORDS SUMMARY | 2025-04-21 12:02 | XMS_ITS | Clinical Summary ---
Author Organization [facility] Address [address] 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
--- OUTSIDE RECORDS SUMMARY | 2025-04-21 12:02 | XMS_ITS | Encounter Summary ---
Author Organization [facility] Address [address] [place] [address] Care Team Providers Care Toll Lineman Name Role Phone Douglas Morse MD Primary Care Provider [phone] Encounter Details Date Type Department Care Team (Late st Contact Info) Description 05/21/2002 Outpatient Historical [facility] Medicine [facility] [address] [place] [address] [place] [address] [place] [address] Social History Tobacco Use Types Packs/Day Years Used Date Smoking Tobacco: Never Assessed Sex and Gender Information Value Date Recorded Sex Assigned at Not on file Legal Sex Male 4:11 AM SEISMOGRAPH RECORDER Gender Identity Not on file Sexual Orientation Not on file documented as of this encounter Plan of Treatment Not on file documented as of this encounter Visit Diagnoses Not on filedocumented in this encounter Care Teams Toll Lineman Relationship Specialty [place] [address] [place] [address] PCP - General 12/27/02 documented as of this encounter
--- OUTSIDE RECORDS SUMMARY | 2025-04-21 12:02 | XMS_ITS | Encounter Summary ---
Author Organization [facility] Address 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
--- OUTSIDE RECORDS SUMMARY | 2025-04-21 12:02 | XMS_ITS | Encounter Summary ---
Author Organization [facility] Address [address] [place] [address] Care Team Providers Care Soap Tender Name Role Phone Douglas Morse MD Primary Care Provider [phone] Encounter Details Date Type Department Care Team (Late st Contact Info) Description 11/02/1999 Outpatient Historical [facility] [place] [place] [address] [place] [address] Social History Tobacco Use Types Packs/Day Years Used Date Smoking Tobacco: Never Assessed Sex and Gender Information Value Date Recorded Sex Assigned at Not on file Legal Sex Male 4:11 AM WIRE PHOTO OPERATOR Gender Identity Not on file Sexual Orientation Not on file documented as of this encounter Plan of Treatment Not on file documented as of this encounter Visit Diagnoses Not on filedocumented in this encounter Care Teams Soap Tender Relationship Specialty [place] [address] [place] [address] PCP - General 12/27/02 documented as of this encounter
[2025-04-21 12:06] LABS: Hematocrit 45.0 % (42.0-52.0); Hemoglobin 14.1 g/dL (14.0-18.0); Immature Granulocyte Percent A 0.2 % (0-0.5); Lymphocytes Absolute Auto 1.85 K/mm3 (0.9-3.2); Mean Corpuscular HGB Conc 31.3 g/dl (32-36); Mean Corpuscular Hemoglobin 28.0 pg (26-34); Mean Corpuscular Volume 89.3 fl (80-100); Nucleated Red Blood Cells Absolute Auto 0.000 K/mm3 (0.0-0.012); Nucleated Red Blood Cells Perc 0.0 % (0.0-0.2); Platelet Count Result 192 k/mm3 (150-375); Red Blood Count 5.04 M/mm3 (4.6-6.20); White Blood Count 6.3 K/mm3 (4.5-10.0)
[2025-04-21 12:18] LABS: Alanine Aminotransferase 27 U/L (6-50); Albumin Level 4.3 g/dL (3.5-5.1); Alkaline Phosphatase 81 U/L (38-126); Anion Gap 6 mmol/L (4-12); Aspartate Amino Transferase 33 U/L (17-59); Bilirubin,Total 0.9 mg/dL (0.2-1.3); Blood Urea Nitrogen 14 mg/dL (9-20); Calcium 9.0 mg/dL (8.4-10.2); Carbon Dioxide 30 mmol/L (22-30); Chloride 99 mmol/L (98-107); Cholesterol 177 mg/dL (0-200); Estimated Glomerular Filt Rate > 60; Glucose 105 mg/dL (65-110); HDL Direct 79 mg/dL; Potassium 4.0 mmol/L (3.4-5.0); Sodium 135 mmol/L (137-145); Total Protein 7.3 g/dL (6.3-8.2); Triglycerides 80 mg/dL (<150)
[2025-04-21 12:35] LABS: Hemoglobin A1C 6.0 % (<5.7)
== END 2025-04-21 11:23 | disposition home or self-care (01) ==
PROVIDERS: PCP Internal Medicine; Visit Provider Internal Medicine
DX: R73.03 Prediabetes (principal); E78.2 Mixed hyperlipidemia; Z79.899 Other long term (current) drug therapy; I48.91 Unspecified atrial fibrillation; I48.92 Unspecified atrial flutter
CPT/HCPCS: 36415; 80053; 80061; 83036; 85025